=== PATIENT | male | born 1995 | race African-American/Black ===

== ENCOUNTER 2017-01-13 05:48 | Emergency (ER) | payer OTHER ==
[~2017-01-13] VITALS: Ht 193 cm; Wt 86.2 kg
[2017-01-13 06:06] VITALS: BP 159/75
[2017-01-13] MEDS ORDERED: TYLE325C PO (06:17)
[2017-01-13] MEDS ORDERED: LIDO1SOL7 MT (07:54)
[2017-01-13] MEDS ORDERED: LIDOCAINE VISCOUS 2% SOLN 15ML UDC PO ONE (08:00)
== END 2017-01-13 08:10 | disposition home or self-care (01) ==
LOC: M ED 08:06
DX: R07.0 Pain in throat (principal)

== ENCOUNTER 2017-01-13 17:47 | Emergency (ER) | payer OTHER ==
[~2017-01-13] VITALS: Ht 193 cm; Wt 86.2 kg
[~2017-01-13 17:47] MED LIST: LIDO1SOL7 MT; TYLE325C PO
[2017-01-13 17:48] VITALS: BP 153/66
== END 2017-01-13 18:30 | disposition left against medical advice (07) ==
LOC: M ED 18:22
DX: J02.9 Acute pharyngitis, unspecified (principal); Z53.21 Procedure and treatment not carried out due to patient leaving prior to being seen by health care provider